=== PATIENT | female | born 1955 | race Caucasian/White ===

== ENCOUNTER → 2017-10-23 | Outpatient (CLI) | payer BC ==
[2013-08-02 16:10] VITALS: BP 133/64
--- NOTE | 2017-10-23 16:50 | MRI ---
MRI left shoulder without contrast Indication: Shoulder pain Technique: Multisequence, multiplanar MR images of the left shoulder were obtained without IV contras t. Comparison: None Findings: Apart from subinsertional cysts at the supraspinatus footplate, marrow signal is normal. No acute fracture or malalignment is identified. There is mild tendinosis of the distal supraspinatus and anterior infraspinatus tendons without discr ete tear identified. There is also mild tendinosis of the cranial distal subscapularis. The teres min or is normal. There is no edema or atrophy of the rotator cuff musculature. 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 Type 2 acromion is unremarkable. There is moderate fluid distention of the suba cromial/subdeltoid bursa. The glenohumeral joint is well maintained without significant chondrosis or effusion. The long head biceps tendon is intact and appropriately positioned within the bicipital groove. Impression: Reported By:
== END ==
LOC: RAD 12:51
PROVIDERS: ATTEND Internal Medicine
DX: M25.512 Pain in left shoulder (principal)
CPT/HCPCS: 73221